=== PATIENT | female | born 1945 | race Caucasian/White ===

== ENCOUNTER 2017-04-29 14:05 | Observation (INO) | payer OTHER ==
[~2017-04-29] VITALS: Ht 152.4 cm; Wt 75.5 kg
[2017-04-29 14:10] VITALS: Ht 152.4 cm; Wt 75.5 kg
[2017-04-29] MEDS ORDERED: ASPIRIN 325 MG TAB PO STA (14:25)
[2017-04-29] MEDS ORDERED: NITROGLYCERIN 2% 1 GM OINT PKT TD STA (14:25)
[2017-04-29] MEDS ORDERED: ONDANSETRON 4 MG INJ IV STA (14:25)
[2017-04-29] MEDS ORDERED: morphine 4 MG/ML VIAL IV STA (14:25)
[2017-04-29] MEDS ORDERED: NITROGLYCERIN (SL) 0.4 MG TAB SL PRN (14:30)
[2017-04-29] MEDS ORDERED: NICARDipine HCL 30 MG CAPSULE PO ONE (14:30)
[2017-04-29 14:46] LABS: BASOPHIL # 0.1 10^3/ul (0.0-0.1); BASOPHILS % 0.5 % (0.0-2.0); EOSINOPHILS # 0.2 10^3/ul (0.0-0.5); EOSINOPHILS % 2.3 % (0.0-7.0); HEMATOCRIT 37.9 % (37.0-47.0); HEMOGLOBIN 12.5 g/dl (12.0-16.0); LYMPHOCYTES # 2.9 10^3/ul (0.8-2.9); LYMPHOCYTES % 27.3 % (15.0-51.0); MEAN CORPUSCULAR HEMOGLOBIN 28.2 pg (29.0-33.0); MEAN CORPUSCULAR VOLUME 85.6 fl (82.0-101.0); MEAN PLATELET VOLUME 11.2 fl (7.4-10.4); MONOCYTE # 0.8 10^3/ul (0.3-0.9); MONOCYTES % 7.3 % (0.0-11.0); NEUTROPHIL # 6.6 10^3/ul (1.6-7.5); NEUTROPHILS % 62.2 % (39.0-77.0); PLATELET COUNT 238 10^3/UL (140-415); RED BLOOD COUNT 4.43 10^6/ul (4.20-5.40); RED CELL DISTRIBUTION WIDTH 13.7 % (11.5-14.5); WHITE BLOOD COUNT 10.6 10^3/ul (4.8-10.8)
[2017-04-29 15:01] LABS: INR 1.03; PROTIME 13.5 Sec (12.2-14.2); PT RATIO 1.1
[2017-04-29 15:02] LABS: PARTIAL THROMBOPLASTIN TIME 29.9 Sec (25.0-35.0)
--- NOTE | 2017-04-29 15:04 | RADRPT ---
PROCEDURE: XR Chest. CLINICAL INDICATION: 71-year-old female with chest pain. TECHNIQUE: Single frontal view of the chest was obtained. COMPARISON: None FINDINGS: The soft tissues are generous with monitoring electrodes projecting across the chest. There are deg enerative osteophytes in the thoracic spine. The heart is mildly enlarged. A soft tissue density dugan spicious for an epicardial fat pad is noted adjacent to the right heart border. The cardiomediastina l silhouette and hilar structures are normal. The pulmonary vasculature is normal. There are vascul ar calcifications in the aortic arch. The lungs are clear. The costophrenic angles are normal. IMPRESSION: 1. Mild cardiomegaly with no evidence of active cardiopulmonary disease. 2. Soft tissue density suspicious for an epicardial fat pad adjacent to the right heart border. An eventration in the dome of the right diaphragm might present this fashion. This is likely benign. 3. Atherosclerotic vascular disease. RPTAT:AAJJ Physician Juvenal Date Time Electronically viewed and signed by Physician Juvenal on 04/29/2017 15:04 JOHNATHAN/
[2017-04-29 15:08] VITALS: TEMP 98.7
--- NOTE | 2017-04-29 15:09 | ERA ---
ER Documentation Chief Complaint Date/Time DATE: 04/29/17 TIME: 15:05 Chief Complaint Chest PAIN SINCE LAST NIGHT, HX OF STENT PLCMT, FEELS SAME HPI This is a 71-year-old diabetic with a history of cardiac stent placement a few years ago at an outside hospital is complaining of chest pain last night and again this morning at around 4 AM. She describes the sensation is moderate to severe that is a pressure-like sensation with radiation up into her neck. She has some shortness of breath and diaphoresis and slight nausea. No vomiting no syncope no palpitations. She says the pain is exactly like the pain she had before her stent was placed. The patient takes one baby aspirin a day but did not take any other medication for pain relief such as nitroglycerin. ROS All systems reviewed and are negative except as per history of present illness. Medications Home Meds Reported Medications Atorvastatin* (Atorvastatin*) 40 Mg Tablet, 40 MG PO QHS, #30 TAB 04/29/17 Clopidogrel Bisulfate (Clopidogrel) 75 Mg Tablet, 75 MG PO DAILY, #30 TAB 04/29/17 Aspirin* (Aspirin* EC) 81 Mg Tablet.dr, 81 MG PO DAILY, TAB 04/29/17 Clonidine Hcl* (Clonidine Hcl*) 0.2 Mg Tablet, 0.2 MG PO DAILY Y for ELEVATED BLOOD PRESSURE, TAB 04/29/17 Metformin* (Glucophage*) 500 Mg Tab, 500 MG PO BID WITH MEALS, #30 TAB 04/29/17 Meloxicam* (Mobic*) 15 Mg Tablet, 15 MG PO DAILY, #30 TAB 04/29/17 Atenolol* (Atenolol*) 50 Mg Tablet, 50 MG PO DAILY, #30 04/29/17 Losartan-Hydrochlorothiazide (Losartan-HCTZ) 100-12.5 Mg Tab, 1 TAB PO DAILY, # 30 04/29/17 Allergies Allergies: Coded Allergies: No Known Allergy (Unverified , 04/29/17) PMhx/Soc Hx Cardiac Disorders: Yes Hx Alcohol Use: No Hx Substance Use: No Hx Tobacco Use: No Smoking Status: Never smoker FmHx Family History: No coronary disease Physical Exam Vitals Vital Signs Date Time Temp Pulse Resp B/P Pulse Ox O2 Delivery O2 Flow Rate FiO2 04/29/17 15:51 60 22 130/62 97 Room Air 04/29/17 15:08 98.7 54 20 236/102 98 Nasal Cannula 2.0 04/29/17 15:01 Nasal Cannula 2 04/29/17 14:37 Nasal Cannula 2 04/29/17 14:10 98.6 61 24 236/102 98 Physical Exam Const: Well-developed, well-nourished Head: Atraumatic, normocephalic Eyes: Normal Conjunctiva, PERRLA, EOMI, normal sclera, no nystagmus ENT: Normal External Ears, Nose and Mouth, moist mucus membranes. Neck: Full range of motion. No meningismus, no lymphadenopathy. Resp: Clear to auscultation bilaterally, no wheezing, rhonchi, rales Cardio: Regular rate and rhythm, no murmurs, S1 S2 present Abd: Soft, non tender x 4, non distended. Normal bowel sounds, no guarding or rebound, no pulsitile abdominal masses or bruits Skin: No petechiae or rashes, no ecchymosis , no maculopapular rash Back: No midline or flank tenderness Ext: No cyanosis, or edema, FROM x 4, normal inspection, neurovascularly intact x 4 Neur: Awake and alert, STR 5/5 x 4, sensation intact x 4, no focal findings, cerebellum intact Psych: Normal Mood and Affect Result Diagram: 04/29/17 1430 04/29/17 1515 Results 24 hrs Laboratory Tests Test 04/29/17 14:30 04/29/17 15:15 White Blood Count 10.610^3/ul Red Blood Count 4.4310^6/ul Hemoglobin 12.5g/dl Hematocrit 37.9% Mean Corpuscular Volume 85.6fl Mean Corpuscular Hemoglobin 28.2pg Mean Corpuscular Hemoglobin Concent 33.0g/dl Red Cell Distribution Width 13.7% Platelet Count 42975^3/UL Mean Platelet Volume 11.2fl Neutrophils % 62.2% Lymphocytes % 27.3% Monocytes % 7.3% Eosinophils % 2.3% Basophils % 0.5% Nucleated Red Blood Cells % 0.0/100WBC Neutrophils # 6.610^3/ul Lymphocytes # 2.910^3/ul Monocytes # 0.810^3/ul Eosinophils # 0.210^3/ul Basophils # 0.110^3/ul Nucleated Red Blood Cells # 0.010^3/ul Prothrombin Time 13.5Sec Prothrombin Time Ratio 1.1 INR International Normalized Ratio 1.03 Activated Partial Thromboplast Time 29.9Sec Sodium Level 138mmol/L Potassium Level 4.0mmol/L Chloride Level 104mmol/L Carbon Dioxide Level 27mmol/L Anion Gap 11 Blood Urea Nitrogen 17mg/dl Creatinine 0.76mg/dl Glucose Level 97mg/dl Calcium Level 9.1mg/dl Troponin I < 0.012ng/ml B-Type Natriuretic Peptide 319PG/ML Current Medications Medications (Trade) Dose Ordered Sig/Fay Route PRN Reason Start Time Stop Time Status Last Admin Dose Admin Aspirin (Aspirin) 325 mg ONCE STAT PO 04/29/17 14:25 04/29/17 14:27 DC 04/29/17 14:41 Nitroglycerin (Nitroglycerin 2% Oint) 1 inch ONCE STAT TD 04/29/17 14:25 04/29/17 14:27 DC 04/29/17 15:01 Nitroglycerin (Nitroglycerin (Sl Tab) 0.4 Mg) 1 tab Q5M UP TO 3 DOSES PRN SL CHEST PAIN 04/29/17 14:30 Morphine Sulfate (morphine) 4 mg ONCE STAT IV 04/29/17 14:25 04/29/17 14:27 DC 04/29/17 14:41 Ondansetron HCl (Zofran Inj) 4 mg ONCE STAT IV 04/29/17 14:25 04/29/17 14:27 DC 04/29/17 14:42 Nicardipine HCl (Cardene) 30 mg ONCE ONCE PO 04/29/17 14:30 04/29/17 14:31 DC 04/29/17 15:00 Procedures/MDM EKG: Rate/Rhythm: Normal Sinus Rhythm,NL intervals QRS, ST, QT: NORMAL FL, QRS, QT] Impression: NORMAL EKG PROCEDURE: XR Chest. CLINICAL INDICATION: 71-year-old female with chest pain. TECHNIQUE: Single frontal view of the chest was obtained. COMPARISON: None FINDINGS: The soft tissues are generous with monitoring electrodes projecting across the chest. There are degenerative osteophytes in the thoracic spine. The heart is mildly enlarged. A soft tissue density suspicious for an epicardial fat pad is noted adjacent to the right heart border. The cardiomediastinal silhouette and hilar structures are normal. The pulmonary vasculature is normal. There are vascular calcifications in the aortic arch. The lungs are clear. The costophrenic angles are normal. IMPRESSION: 1. Mild cardiomegaly with no evidence of active cardiopulmonary disease. 2. Soft tissue density suspicious for an epicardial fat pad adjacent to the right heart border. An eventration in the dome of the right diaphragm might present this fashion. This is likely benign. 3. Atherosclerotic vascular disease. RPTAT:AAJJ Physician Juvenal Date Time Electronically viewed and signed by Jose R Lyon Physician on 04/29/2017 15:04 JM/ CC: MAUREEN PHILLIPS DO Patient's symptoms are concerning for cardiac cause will require inpatient workup and continuous monitoring. Further w/u for ischemia, arrhythmia, PE or dissection will be deferred to the inpatient team. Accepting Care Team: Current data and ongoing care discussed. Time: Time of admission Primary Provider: XOXOXO Consulting: XOXOXO Outstanding Data: none Critical Care Time: 35 minutes Treatments/Evaluations: Close monitoring and treatment of unstable vital signs, cardiorespiratory, and neurologic status, while maintaining tight balance of fluid, respiratory, and cardiac interventions. This time includes discussing the case with the patient and the patient's family. This time does not include all procedures stated elsewhere in this record. This time also includes reviewing old records, labs and radiological studies. This time includes examining and re-examining the patient. Additionally, this time also includes arranging care with admitting and consulting physicians. PROCEDURE: XR Chest. CLINICAL INDICATION: 71-year-old female with chest pain. TECHNIQUE: Single frontal view of the chest was obtained. COMPARISON: None FINDINGS: The soft tissues are generous with monitoring electrodes projecting across the chest. There are degenerative osteophytes in the thoracic spine. The heart is mildly enlarged. A soft tissue density suspicious for an epicardial fat pad is noted adjacent to the right heart border. The cardiomediastinal silhouette and hilar structures are normal. The pulmonary vasculature is normal. There are vascular calcifications in the aortic arch. The lungs are clear. The costophrenic angles are normal. IMPRESSION: 1. Mild cardiomegaly with no evidence of active cardiopulmonary disease. 2. Soft tissue density suspicious for an epicardial fat pad adjacent to the right heart border. An eventration in the dome of the right diaphragm might present this fashion. This is likely benign. 3. Atherosclerotic vascular disease. RPTAT:AAJJ Jose R Lyon Physician Date Time Electronically viewed and signed by Jose R Lyon, Physician on 04/29/2017 15:04 JM/ CC: MAUREEN PHILLIPS DO Departure Diagnosis: Primary Impression: Hypertensive emergency Additional Impression: Chest pain Qualified Code: R07.9 - Chest pain, unspecified type Condition: Fair MAUREEN PHILLIPS DO Apr 29, 2017 15:09
[2017-04-29] MEDS ORDERED: LOSA1TAB21 PO (15:22)
[2017-04-29] MEDS ORDERED: ATEN50TA PO (15:23)
[2017-04-29] MEDS ORDERED: METF500T4 PO (15:24)
[2017-04-29] MEDS ORDERED: MELO-210 PO (15:24)
[2017-04-29] MEDS ORDERED: CLON0.2T5 PO (15:25)
[2017-04-29] MEDS ORDERED: ASPI-664 PO (15:26)
[2017-04-29] MEDS ORDERED: CLOP75TA27 PO (15:32)
[2017-04-29] MEDS ORDERED: ATOR40TA68 PO (15:33)
[2017-04-29 15:41] LABS: ANION GAP 11 (8-16); BLOOD UREA NITROGEN 17 mg/dl (7-20); CALCIUM 9.1 mg/dl (8.4-10.2); CARBON DIOXIDE 27 mmol/L (21-31); CHLORIDE 104 mmol/L (97-110); CREATININE 0.76 mg/dl (0.44-1.00); GLUCOSE 97 mg/dl (70-220); SODIUM 138 mmol/L (135-144)
[2017-04-29 15:52] LABS: B-TYPE NATRIURETIC PEPTIDE 319 PG/ML (0-125)
[2017-04-29 15:53] LABS: TROPONIN-I < 0.012 ng/ml (0.00-0.12)
[2017-04-29] MEDS ORDERED: NACL 0.9% 3 ML SYG IV SCH (18:00)
[2017-04-29] MEDS ORDERED: ONDANSETRON 4 MG INJ IV PRN (18:00)
[2017-04-29] MEDS ORDERED: morphine 2 MG INJ IV PRN (18:00)
[2017-04-29] MEDS ORDERED: ACETAMINOPHEN 325 MG TAB PO PRN ×2 (18:00)
[2017-04-29 18:36] LABS: CHOL/HDL RATIO 2.6 RATIO
[2017-04-29] MEDS: ATENOLOL 50 MG TAB PO SCH (19:00)
--- NOTE | 2017-04-29 19:12 | HP ---
Date/Time of Note Date/Time of Note DATE: 04/29/17 TIME: 19:06 Assessment/Plan VTE Prophylaxis VTE Prophylaxis Intervention: SCD's Lines/Catheters IV Catheter Type (from Nrsg): Saline Lock Assessment/Plan Assessment/Plan 71 yo F with known hx CAD sp PCI admitted for chest pain in setting of elevated BP. Concern for HTN urgency v emergency and ACS PLAN tele, serial trops, TTE consider cards cs v calling the oncall for [facility] in the AM [phone]) cont home BP control for DM hx, do accuchecks. a1c 6.6 cardiac diet DVT prophx HPI/ROS Admit Date/Time Admit Date/Time Hx of Present Illness CC chest pain x 1 day HPI 71 yo F with pmhx CAD sp PCI 12 years ago here with 1 day of chest pain ( started this AM). No SOB or leg swelling. Pt recently seen by supervisor fine grading ( [facility] in [place]). Was told based on the results of a TTE that she might need a stress test or cath as there was concern that her stent was " weak. " BP quite high on presentation, pt given nitropaste and cardene PMHx as per HPI Soc Hx: lives in the community PMH/Family/Social Social History Smoking Status: Never smoker Exam/Review of Systems Vital Signs Vitals Vital Signs Date Time Temp Pulse Resp B/P Pulse Ox O2 Delivery O2 Flow Rate FiO2 04/29/17 18:11 52 17 137/68 94 Room Air 04/29/17 15:08 98.7 2.0 Exam Exam EOMI MMM nad no mrg lungs clear abd soft no rashes labs reviewed Labs Result Diagram: 04/29/17 1430 04/29/17 1515 Medications Medications Current Medications Aspirin (Halfprin) 81 mg DAILY PO ; Start 04/30/17 at 09:00 Atenolol (Tenormin) 50 mg DAILY PO ; Start 04/29/17 at 18:00 Atorvastatin Calcium (Lipitor) 40 mg QHS PO ; Start 04/29/17 at 21:00 Clopidogrel Bisulfate (plaVIX) 75 mg DAILY PO ; Start 04/30/17 at 09:00 Losartan Potassium (Cozaar) 100 mg DAILY PO ; Start 04/30/17 at 09:00 Clonidine (Catapres) 0.2 mg Q6H PRN PO SBP>180; Start 04/29/17 at 18:00 Acetaminophen (Tylenol Tab) 650 mg Q6H PRN PO PAIN LEVEL 1-3 OR FEVER; Start 04/29/17 at 18:00 Acetaminophen/ Hydrocodone Bitart ([place] (5/325)) 1 tab Q6H PRN PO PAIN LEVEL 4 -6; Start 04/29/17 at 18:00 Morphine Sulfate (morphine) 2 mg Q4H PRN IV PAIN LEVEL 7-10; Start 04/29/17 at 18:00 Enoxaparin Sodium (Lovenox) 40 mg DAILY SC ; Start 04/30/17 at 09:00 Hydrochlorothiazide (Hydrochlorothiazide) 12.5 mg DAILY PO ; Start 04/30/17 at 09:00 KIKE EATON MD Apr 29, 2017 19:12
[2017-04-29 20:00] VITALS: BP 149/68; RESP 20
[2017-04-29 20:19] VITALS: PULSE 56
[2017-04-29] MEDS: ATORVASTATIN 40 MG TAB PO SCH (21:04)
[2017-04-30] VITALS (14 sets, daily range): BP systolic 118–168; BP diastolic 56–87; PULSE 40–60; RESP 18–20
[2017-04-30 04:48] LABS: CALCIUM 9.5 mg/dl (8.4-10.2); CREATININE 0.79 mg/dl (0.44-1.00); MAGNESIUM 1.8 mg/dl (1.7-2.5); POTASSIUM 4.4 mmol/L (3.5-5.1)
[2017-04-30] MEDS ORDERED: DEXTROSE 50% 50 ML SYRINGE IV PRN ×2 (08:00)
[2017-04-30] MEDS ORDERED: GLUCOSE GEL 15 GRAM TUBE PO PRN ×2 (08:00)
[2017-04-30] MEDS: INSULIN ASPART [NOVOLOG] 3 ML PEN SC SCH ×4 (08:00→20:39)
[2017-04-30] MEDS ORDERED: GLUCOSE GEL 15 GRAM TUBE BUCCAL PRN (08:00)
[2017-04-30] MEDS ORDERED: GLUCAGON 1 MG INJ IM PRN (08:00)
[2017-04-30] MEDS: ATENOLOL 50 MG TAB PO SCH (09:00)
[2017-04-30] MEDS: HYDROCHLOROTHIAZIDE 12.5 MG CAP PO SCH (09:09)
[2017-04-30] MEDS: CLOPIDOGREL 75 MG TAB PO SCH (09:09)
[2017-04-30] MEDS: HYDROCODONE/APAP (5/325) TAB PO PRN ×2 (09:10→20:37)
[2017-04-30] MEDS: ASPIRIN (EC) 81 MG TAB PO SCH (09:10)
[2017-04-30] MEDS: LOSARTAN 50 MG TAB PO SCH (09:10)
[2017-04-30] MEDS: ENOXAPARIN 40 MG/0.4 ML SYG SC SCH (09:13)
--- NOTE | 2017-04-30 13:48 | CONS ---
Date/Time of Note Date/Time of Note DATE: 04/30/17 TIME: 13:35 Assessment/Plan Assessment/Plan Chief Complaint/Hosp Course Chest pain/angina: May just be secondary to her very high BP (230 on presentation) but has h/o CAD and may have progression of disease. Trops negative and EKG unremarkable. She certainly has exertional angina but may be from her uncontrolled BP even with normal coronaries. For now will obtain and echo and MPI. If high risk features, plan for cardiac cath later this week. Acute ?diastolic vs systolic heart failure: EF unknown. Mild CHF by exam. Possibly from uncontrolled BP and diastolic dysfunction vs systolic dysfunction HTN urgency: SBP 230s on admission, now better controlled CAD s/p PCI 12 yrs ago DM: controlled. A1C 6.6 -ASA, lipitor -atenolol ok for now, prefer metoprolol or if cardiomyopathy, can start coreg -cozaar 100mg, HCTZ -lasix 20mg IV x 1 and reassess -echo -Lexiscan MPI tomorrow am, NPO after midnight Problems: Consultation Date/Type/Reason Admit Date/Time Date of Consultation: Apr 30, 2017 Type of Consultation: Cardiology Reason for Consultation Chest pain Referring Provider: KIKE EATON MD Hx of Present Illness 71 yo F with a h/o CAD s/p PCI 12 yrs ago, DM (controlled), HTN, who presented with chest pain. On presentation, the pt's SBP was 230 and at home it was apparently 220. The pt's son tells me that the pt has been having 1 month of exertional chest pain and dyspnea. She was evaluated at [facility] by Dr. Franco and the plan was for Stress MPI but they have been waiting for authorization. The pt also has been having mild SOB and leg edema. Currently no symptoms. per HPI Social History Smoking Status: Never smoker Exam/Review of Systems Vital Signs Vitals Vital Signs Date Time Temp Pulse Resp B/P Pulse Ox O2 Delivery O2 Flow Rate FiO2 04/30/17 12:12 98.3 79 19 131/74 98 04/29/17 19:29 Room Air 04/29/17 15:08 2.0 Intake and Output 04/29/17 04/29/17 04/30/17 15:00 23:00 07:00 Intake Total 250 ml Balance 250 ml Exam Constitutional: alert, oriented Psych: no complaints Head: atraumatic, normocephalic Eyes: nl conjunctiva Neck: jvd (8cm) Respiratory: crackles/rales, diminished breath sounds, No clear to auscultation Cardiovascular: regular rate and rhythm, No edema, No systolic murmur Gastrointestinal: non-tender, soft, No distended Musculoskeletal: nl extremities to inspection Neurological: nl mental status, nl speech Skin: No rash or lesions Results EKG: sinus, no ST changes Result Diagram: 04/29/17 1430 04/30/17 0352 Results 24 hrs Laboratory Tests Test 04/29/17 14:30 04/29/17 15:15 04/29/17 22:21 04/30/17 03:52 White Blood Count 10.6 Red Blood Count 4.43 Hemoglobin 12.5 Hematocrit 37.9 Mean Corpuscular Volume 85.6 Mean Corpuscular Hemoglobin 28.2 L Mean Corpuscular Hemoglobin Concent 33.0 Red Cell Distribution Width 13.7 Platelet Count 238 Mean Platelet Volume 11.2 H Neutrophils % 62.2 Lymphocytes % 27.3 Monocytes % 7.3 Eosinophils % 2.3 Basophils % 0.5 Nucleated Red Blood Cells % 0.0 Neutrophils # 6.6 Lymphocytes # 2.9 Monocytes # 0.8 Eosinophils # 0.2 Basophils # 0.1 Nucleated Red Blood Cells # 0.0 Prothrombin Time 13.5 Prothrombin Time Ratio 1.1 INR International Normalized Ratio 1.03 Activated Partial Thromboplast Time 29.9 Sodium Level 138 139 Potassium Level 4.0 4.4 Chloride Level 104 106 Carbon Dioxide Level 27 28 Anion Gap 11 9 Blood Urea Nitrogen 17 21 H Creatinine 0.76 0.79 Glucose Level 97 96 Hemoglobin A1c 6.6 H Calcium Level 9.1 9.5 Troponin I < 0.012 < 0.012 < 0.012 B-Type Natriuretic Peptide 319 H Triglycerides Level 114 Cholesterol Level 94 L LDL Cholesterol, Calculated 35 HDL Cholesterol 36 Cholesterol/HDL Ratio 2.6 Magnesium Level 1.8 Test 04/30/17 08:17 04/30/17 11:54 Bedside Glucose 107 120 Medications Medications Current Medications Aspirin (Halfprin) 81 mg DAILY PO Last administered on 04/30/17 09:10; Admin Dose 81 MG; Start 04/30/17 at 09:00 Atenolol (Tenormin) 50 mg DAILY PO Last administered on 04/29/17 19:00; Admin Dose 50 MG; Start 04/29/17 at 18:00 Atorvastatin Calcium (Lipitor) 40 mg QHS PO Last administered on 04/29/17 21: 04; Admin Dose 40 MG; Start 04/29/17 at 21:00 Clopidogrel Bisulfate (plaVIX) 75 mg DAILY PO Last administered on 04/30/17 09 :09; Admin Dose 75 MG; Start 04/30/17 at 09:00 Losartan Potassium (Cozaar) 100 mg DAILY PO Last administered on 04/30/17 09: 10; Admin Dose 100 MG; Start 04/30/17 at 09:00 Clonidine (Catapres) 0.2 mg Q6H PRN PO SBP>180; Start 04/29/17 at 18:00 Acetaminophen (Tylenol Tab) 650 mg Q6H PRN PO PAIN LEVEL 1-3 OR FEVER; Start 04/29/17 at 18:00 Acetaminophen/ Hydrocodone Bitart ([place] (5/325)) 1 tab Q6H PRN PO PAIN LEVEL 4 -6 Last administered on 04/30/17 09:10; Admin Dose 1 TAB; Start 04/29/17 at 18: 00 Morphine Sulfate (morphine) 2 mg Q4H PRN IV PAIN LEVEL 7-10; Start 04/29/17 at 18:00 Enoxaparin Sodium (Lovenox) 40 mg DAILY SC Last administered on 04/30/17 09:13 ; Admin Dose 40 MG; Start 04/30/17 at 09:00 Hydrochlorothiazide (Hydrochlorothiazide) 12.5 mg DAILY PO Last administered on 04/30/17 09:09; Admin Dose 12.5 MG; Start 04/30/17 at 09:00 Diagnostic Test (Pha) (Accu-Chek) 1 ea 02 XX ; Start 05/01/17 at 02:00 Diagnostic Test (Pha) (Accu-Chek) 1 ea 02 XX ; Start 05/01/17 at 02:00 Miscellaneous Information 1 ea NOTE XX ; Start 04/30/17 at 08:00 Glucose (Glutose) 15 gm Q15M PRN PO DECREASED GLUCOSE; Start 04/30/17 at 08:00 Glucose (Glutose) 22.5 gm Q15M PRN PO DECREASED GLUCOSE; Start 04/30/17 at 08: 00 Dextrose (D50w Syringe) 25 ml Q15M PRN IV DECREASED GLUCOSE; Start 04/30/17 at 08:00 Dextrose (D50w Syringe) 50 ml Q15M PRN IV DECREASED GLUCOSE; Start 04/30/17 at 08:00 Glucagon (Glucagen) 1 mg Q15M PRN IM DECREASED GLUCOSE; Start 04/30/17 at 08:00 Glucose (Glutose) 15 gm Q15M PRN BUCCAL DECREASED GLUCOSE; Start 04/30/17 at 08 :00 GUCCI CISSE Apr 30, 2017 13:48
[2017-04-30] MEDS ORDERED: FUROSEMIDE 20 MG INJ IV ONE (14:00)
--- NOTE | 2017-04-30 14:15 | PN ---
Date/Time of Note Date/Time of Note DATE: 04/30/17 TIME: 14:12 Assessment/Plan VTE Prophylaxis VTE Prophylaxis Intervention: SCD's Lines/Catheters IV Catheter Type (from Nrsg): Saline Lock Assessment/Plan Assessment/Plan 71 yo F with known hx CAD sp PCI admitted for chest pain in setting of elevated BP. Concern for HTN urgency v emergency and ACS PLAN stress test in AM cont DAPT, statin cont BP control (agree with cards would make more sense to have pt on cardioselective bb) cont current meds for DM hx, accuchecks. a1c 6.6 Subjective 24 Hr Interval Summary Free Text/Dictation chest pain resolved, BP better Exam/Review of Systems Vital Signs Vitals Vital Signs Date Time Temp Pulse Resp B/P Pulse Ox O2 Delivery O2 Flow Rate FiO2 04/30/17 12:12 98.3 79 19 131/74 98 04/29/17 19:29 Room Air 04/29/17 15:08 2.0 Intake and Output 04/29/17 04/29/17 04/30/17 15:00 23:00 07:00 Intake Total 250 ml Balance 250 ml Exam nad laying in bed no mrg lungs clear abd soft no rashes prelim TTE read by taxation economist with both systolic and diastolic dysfunction Results Result Diagram: 04/29/17 1430 04/30/17 0352 Results 24 hrs Laboratory Tests Test 04/29/17 14:30 04/29/17 15:15 04/29/17 22:21 04/30/17 03:52 White Blood Count 10.6 Red Blood Count 4.43 Hemoglobin 12.5 Hematocrit 37.9 Mean Corpuscular Volume 85.6 Mean Corpuscular Hemoglobin 28.2 L Mean Corpuscular Hemoglobin Concent 33.0 Red Cell Distribution Width 13.7 Platelet Count 238 Mean Platelet Volume 11.2 H Neutrophils % 62.2 Lymphocytes % 27.3 Monocytes % 7.3 Eosinophils % 2.3 Basophils % 0.5 Nucleated Red Blood Cells % 0.0 Neutrophils # 6.6 Lymphocytes # 2.9 Monocytes # 0.8 Eosinophils # 0.2 Basophils # 0.1 Nucleated Red Blood Cells # 0.0 Prothrombin Time 13.5 Prothrombin Time Ratio 1.1 INR International Normalized Ratio 1.03 Activated Partial Thromboplast Time 29.9 Sodium Level 138 139 Potassium Level 4.0 4.4 Chloride Level 104 106 Carbon Dioxide Level 27 28 Anion Gap 11 9 Blood Urea Nitrogen 17 21 H Creatinine 0.76 0.79 Glucose Level 97 96 Hemoglobin A1c 6.6 H Calcium Level 9.1 9.5 Troponin I < 0.012 < 0.012 < 0.012 B-Type Natriuretic Peptide 319 H Triglycerides Level 114 Cholesterol Level 94 L LDL Cholesterol, Calculated 35 HDL Cholesterol 36 Cholesterol/HDL Ratio 2.6 Magnesium Level 1.8 Test 04/30/17 08:17 04/30/17 11:54 Bedside Glucose 107 120 Medications Medications Current Medications Aspirin (Halfprin) 81 mg DAILY PO Last administered on 04/30/17 09:10; Admin Dose 81 MG; Start 04/30/17 at 09:00 Atenolol (Tenormin) 50 mg DAILY PO Last administered on 04/29/17 19:00; Admin Dose 50 MG; Start 04/29/17 at 18:00 Atorvastatin Calcium (Lipitor) 40 mg QHS PO Last administered on 04/29/17 21: 04; Admin Dose 40 MG; Start 04/29/17 at 21:00 Clopidogrel Bisulfate (plaVIX) 75 mg DAILY PO Last administered on 04/30/17 09 :09; Admin Dose 75 MG; Start 04/30/17 at 09:00 Losartan Potassium (Cozaar) 100 mg DAILY PO Last administered on 04/30/17 09: 10; Admin Dose 100 MG; Start 04/30/17 at 09:00 Clonidine (Catapres) 0.2 mg Q6H PRN PO SBP>180; Start 04/29/17 at 18:00 Acetaminophen (Tylenol Tab) 650 mg Q6H PRN PO PAIN LEVEL 1-3 OR FEVER; Start 04/29/17 at 18:00 Acetaminophen/ Hydrocodone Bitart ([place] (5/325)) 1 tab Q6H PRN PO PAIN LEVEL 4 -6 Last administered on 04/30/17 09:10; Admin Dose 1 TAB; Start 04/29/17 at 18: 00 Morphine Sulfate (morphine) 2 mg Q4H PRN IV PAIN LEVEL 7-10; Start 04/29/17 at 18:00 Enoxaparin Sodium (Lovenox) 40 mg DAILY SC Last administered on 04/30/17 09:13 ; Admin Dose 40 MG; Start 04/30/17 at 09:00 Hydrochlorothiazide (Hydrochlorothiazide) 12.5 mg DAILY PO Last administered on 04/30/17t 09:09; Admin Dose 12.5 MG; Start 04/30/17 at 09:00 Diagnostic Test (Pha) (Accu-Chek) 1 ea 02 XX ; Start 05/01/17 at 02:00 Diagnostic Test (Pha) (Accu-Chek) 1 ea 02 XX ; Start 05/01/17 at 02:00 Miscellaneous Information 1 ea NOTE XX ; Start 04/30/17 at 08:00 Glucose (Glutose) 15 gm Q15M PRN PO DECREASED GLUCOSE; Start 04/30/17 at 08:00 Glucose (Glutose) 22.5 gm Q15M PRN PO DECREASED GLUCOSE; Start 04/30/17 at 08: 00 Dextrose (D50w Syringe) 25 ml Q15M PRN IV DECREASED GLUCOSE; Start 04/30/17 at 08:00 Dextrose (D50w Syringe) 50 ml Q15M PRN IV DECREASED GLUCOSE; Start 04/30/17 at 08:00 Glucagon (Glucagen) 1 mg Q15M PRN IM DECREASED GLUCOSE; Start 04/30/17 at 08:00 Glucose (Glutose) 15 gm Q15M PRN BUCCAL DECREASED GLUCOSE; Start 04/30/17 at 08 :00 Isosorbide Mononitrate (Imdur) 30 mg DAILY PO ; Start 04/30/17 at 14:00 KIKE EATON MD Apr 30, 2017 14:15
[2017-04-30] MEDS: ISOSORBIDE MONONITRATE(SR)30 MG TAB PO SCH (15:09)
[2017-04-30] MEDS: ATORVASTATIN 40 MG TAB PO SCH (20:37)
[2017-05-01] VITALS (11 sets, daily range): BP systolic 123–178; BP diastolic 58–75; PULSE 50–58; RESP 16–19
[2017-05-01] MEDS ORDERED: ACCU-CHEK XX SCH ×2 (02:00)
[2017-05-01] MEDS: INSULIN ASPART [NOVOLOG] 3 ML PEN SC SCH ×3 (08:00→18:05)
[2017-05-01] MEDS: LOSARTAN 50 MG TAB PO SCH (08:21)
[2017-05-01] MEDS: ASPIRIN (EC) 81 MG TAB PO SCH (08:21)
[2017-05-01] MEDS: ATENOLOL 50 MG TAB PO SCH (08:22)
[2017-05-01] MEDS: ISOSORBIDE MONONITRATE(SR)30 MG TAB PO SCH (08:22)
[2017-05-01] MEDS: CLOPIDOGREL 75 MG TAB PO SCH (08:22)
[2017-05-01] MEDS: HYDROCHLOROTHIAZIDE 12.5 MG CAP PO SCH (08:23)
[2017-05-01] MEDS: ENOXAPARIN 40 MG/0.4 ML SYG SC SCH (08:30)
[2017-05-01] MEDS ORDERED: REGADENOSON 0.4 MG/5 ML SYG ONE (09:31)
[2017-05-01] MEDS ORDERED: hydrALAzine 20 MG INJ ONE (09:45)
[2017-05-01] MEDS ORDERED: hydrALAzine 20 MG INJ IV PRN (10:00)
--- NOTE | 2017-05-01 10:01 | RADRPT ---
Echocardiogram Report Patient Name: NEERU HERRING Gender: Female Date: 1945 Study Date: 30-Apr-2017 Process Development Chemist: [facility] Location: I Ref. Physician: KIKE EATON Quality: Adequate Procedures: Transthoracic echocardiogram with complete 2D, M-Mode, and doppler examination. Indications: Chest Pain. 2D/M Mode Doppler Measurement Value Normal Ranges Measurement Value Normal Ranges LVIDd 2D 4.4 3.5 - 5.6 cm AV Peak Deangelo 1.7 m/sec LVIDs 2D 2.8 2.1 - 4.1 cm AV Peak PG 12.0 mmHg FS 2D 36.0 % AI Peak PG 53.0 mmHg LVPWd 2D 1.5 0.6 - 1.1 cm AI Peak Deangelo 3.6 m/sec IVSd 2D 1.5 0.6 - 1.1 cm AI PHT 891.0 msec IVS/LVPW 2D 1.0 LVOT Peak Deangelo 1.0 m/sec AoR Diam 2D 2.1 2.0 - 3.7 cm LVOT Peak PG 4.0 mmHg LA/Ao 2D 2 0 - 1 MV E Peak Deangelo 0.9 m/sec EDV 2D 84.6 cm3 MV A Peak Deangelo 0.7 m/sec ESV 2D 22.2 cm3 MV E/A 1.3 LA Dimen 2D 3.3 2.3 - 4.0 cm MV Decel Time 264 msec MV E/A 1.3 Findings Left Ventricle: Normal left ventricular systolic function. Normal left ventricular cavity size. Moderate concentric left ventricular hypertrophy. Ejection fraction is visually estimated at 65 %. Tissue Doppler/Mitral Doppler indices are consistent with impaired relaxation (Stage I diastolic dysfunction). Right Ventricle: Normal right ventricular size. Normal right ventricular systolic function. Left Atrium: There is moderate enlargement of left atrium. Right Atrium: There is moderate enlargement of right atrium. Mitral Valve: Normal appearance of the mitral valve. Mild mitral valve regurgitation. Aortic Valve: Aortic sclerosis without stenosis. Mild aortic valve regurgitation. Tricuspid Valve: Normal appearance of the tricuspid valve. Unable to obtain RVSP due to minimal presence of tricuspid regurgitation. There is trace tricuspid regurgitation. Pulmonic Valve: Pulmonic valve not well visualized. There is trace pulmonic regurgitation. Pericardium: Normal pericardium with no significant pericardial effusion. There is an anterior echo free space consistent with epicardial fat pad. Aorta: Normal aortic root. IVC: Normal size and normal respiratory collapse consistent with normal right atrial pressure. Conclusions 1.Normal left ventricular systolic function. Normal left ventricular cavity size. Moderate concentric left ventricular hypertrophy. Ejection fraction is visually estimated at 65 %. Tissue Doppler/Mitral Doppler indices are consistent with impaired relaxation (Stage I diastolic dysfunction). 2.Aortic sclerosis without stenosis. Mild aortic valve regurgitation. 3.Unable to obtain RVSP due to minimal presence of tricuspid regurgitation. Normal size and normal respiratory collapse consistent with normal right atrial pressure. Electronically Signed By: Pillo Barry 01-May-2017 10:00:52 -8300 Patient Name: NEERU HERRING Study Date: 30-Apr-2017 [id number]
--- NOTE | 2017-05-01 10:19 | CONS ---
Date/Time of Note Date/Time of Note DATE: 05/01/17 TIME: 10:13 Assessment/Plan Assessment/Plan Chief Complaint/Hosp Course Chest pain/angina: May just be secondary to her very high BP (230 on presentation) but has h/o CAD and may have progression of disease. Trops negative and EKG unremarkable. Echo with preserved EF. Await Lexiscan Acute diastolic heart failure: EF preserved. Mod LVH, diastolic dysfunction. Now euvolemic. HTN urgency: SBP 230s on admission, now better controlled CAD s/p PCI 12 yrs ago DM: controlled. A1C 6.6 -ASA, lipitor -atenolol ok for now -cozaar 100mg, HCTZ -f/u Lexiscan. If negative and BP controlled, possible d/c Problems: Consultation Date/Type/Reason Admit Date/Time Apr 29, 2017 at 17:42 Initial Consult Date 04/30/17 Type of Consultation: Cardiology Referring Provider: KIKE EATON MD 24 HR Interval Summary Free Text/Dictation No o/n events. BP better cotrolled except this am at Lexiscan test. No further chest pain. Exam/Review of Systems Vital Signs Vitals Vital Signs Date Time Temp Pulse Resp B/P Pulse Ox O2 Delivery O2 Flow Rate FiO2 05/01/17 08:07 55 05/01/17 07:51 97.8 18 155/75 96 04/29/17 19:29 Room Air 04/29/17 15:08 2.0 Intake and Output 04/30/17 04/30/17 05/01/17 15:00 23:00 07:00 Intake Total 500 ml 200 ml Balance 500 ml 200 ml Exam Constitutional: alert, oriented Psych: nl mood/affect, no complaints Head: atraumatic, normocephalic Neck: No jvd Respiratory: clear to auscultation, No crackles/rales Cardiovascular: regular rate and rhythm, No edema, No systolic murmur Gastrointestinal: non-tender, soft Neurological: nl mental status, nl speech Results Result Diagram: 04/29/17 1430 04/30/17 0352 Results 24 hrs Laboratory Tests Test 04/30/17 11:54 04/30/17 17:07 04/30/17 20:36 05/01/17 08:20 Bedside Glucose 120 102 119 112 Medications Medications Current Medications Aspirin (Halfprin) 81 mg DAILY PO Last administered on 05/01/17 08:21; Admin Dose 81 MG; Start 04/30/17 at 09:00 Atenolol (Tenormin) 50 mg DAILY PO Last administered on 05/01/17 08:22; Admin Dose 50 MG; Start 04/29/17 at 18:00 Atorvastatin Calcium (Lipitor) 40 mg QHS PO Last administered on 04/30/17 20: 37; Admin Dose 40 MG; Start 04/29/17 at 21:00 Clopidogrel Bisulfate (plaVIX) 75 mg DAILY PO Last administered on 05/01/17 08 :22; Admin Dose 75 MG; Start 04/30/17 at 09:00 Losartan Potassium (Cozaar) 100 mg DAILY PO Last administered on 05/01/17 08: 21; Admin Dose 100 MG; Start 04/30/17 at 09:00 Clonidine (Catapres) 0.2 mg Q6H PRN PO SBP>180; Start 04/29/17 at 18:00 Acetaminophen (Tylenol Tab) 650 mg Q6H PRN PO PAIN LEVEL 1-3 OR FEVER; Start 04/29/17 at 18:00 Acetaminophen/ Hydrocodone Bitart ([place] (5/325)) 1 tab Q6H PRN PO PAIN LEVEL 4 -6 Last administered on 04/30/17 20:37; Admin Dose 1 TAB; Start 04/29/17 at 18: 00 Morphine Sulfate (morphine) 2 mg Q4H PRN IV PAIN LEVEL 7-10; Start 04/29/17 at 18:00 Enoxaparin Sodium (Lovenox) 40 mg DAILY SC Last administered on 05/01/17 08:30 ; Admin Dose 40 MG; Start 04/30/17 at 09:00 Hydrochlorothiazide (Hydrochlorothiazide) 12.5 mg DAILY PO Last administered on 05/01/17 08:23; Admin Dose 12.5 MG; Start 04/30/17 at 09:00 Diagnostic Test (Pha) (Accu-Chek) 1 ea 02 XX ; Start 05/01/17 at 02:00 Diagnostic Test (Pha) (Accu-Chek) 1 ea 02 XX ; Start 05/01/17 at 02:00 Miscellaneous Information 1 ea NOTE XX ; Start 04/30/17 at 08:00 Glucose (Glutose) 15 gm Q15M PRN PO DECREASED GLUCOSE; Start 04/30/17 at 08:00 Glucose (Glutose) 22.5 gm Q15M PRN PO DECREASED GLUCOSE; Start 04/30/17 at 08: 00 Dextrose (D50w Syringe) 25 ml Q15M PRN IV DECREASED GLUCOSE; Start 04/30/17 at 08:00 Dextrose (D50w Syringe) 50 ml Q15M PRN IV DECREASED GLUCOSE; Start 04/30/17 at 08:00 Glucagon (Glucagen) 1 mg Q15M PRN IM DECREASED GLUCOSE; Start 04/30/17 at 08:00 Glucose (Glutose) 15 gm Q15M PRN BUCCAL DECREASED GLUCOSE; Start 04/30/17 at 08 :00 Isosorbide Mononitrate (Imdur) 30 mg DAILY PO Last administered on 05/01/17 08 :22; Admin Dose 30 MG; Start 04/30/17 at 14:00 Hydralazine HCl (Apresoline) 10 mg Q4H PRN IV SBP >160 Last administered on 10:01; Admin Dose 10 MG; Start 05/01/17 at 10:00 GUCCI CISSE May 01, 2017 10:19
--- NOTE | 2017-05-01 11:01 | RADRPT ---
PROCEDURE: Lexiscan myocardial perfusion study CLINICAL INDICATION: 71 -year-old patient complaining of chest pain. TECHNIQUE: Lexiscan 0.4 mg intravenously separate acquisition gated myocardial perfusion SPECT usi ng Tc 99m Myoview 32.1 mCi intravenously at stress and Tc-99m Myoview, 10.4 mCi intravenously at res t was performed using the rest/stress sequence. Poststress Myoview SPECT images were obtained in th e supine position. COMPARISON: No prior studies. FINDINGS: Perfusion images reveal no evidence of perfusion defects. Lexiscan post stress gated SPECT images demonstrate no wall motion abnormalities. IMPRESSION: 1. No evidence of perfusion defects. 2. No wall motion abnormalities. 3. The left ventricle ejection fraction at stress is greater than 70%. RPTAT: HH .Tatiana Jc MD, MD Date Time Electronically viewed and signed by .Tatiana cJ MD, MD on 05/01/2017 11:01 .L/
--- NOTE | 2017-05-01 12:55 | PDOCDIS ---
Discharge Instructions CONDITION Patient Condition: Stable HOME CARE INSTRUCTIONS: Diet Instructions: Low Fat /Cholesterol ACTIVITY: Activity Restrictions: Slowly Increase Activity FOLLOW UP/APPOINTMENTS Follow-up Plan Please take your medications as prescribed. Please follow-up with your regular doctor in the clinic in the next 1 week. ALLYSSA LOPEZ May 01, 2017 12:55
--- NOTE | 2017-05-01 13:25 | DS ---
DATE OF ADMISSION: 04/29/2017 DATE OF DISCHARGE: 05/01/2017 HISTORY OF PRESENT ILLNESS: This is a 71-year-old female originally admitted on 04/29/2017, being discharged home pending final results of the stress test on 05/01/2017. The patient came in with chest pain for one day prior to admission. HOSPITAL COURSE: She was admitted to telemetry floor. She ruled out for acute coronary syndrome. She had an echocardiogram performed that showed ejection fraction of 65 percent. There was some stage 1 diastolic dysfunction, normal left ventricular systolic function, normal left ventricular cavity size, moderate concentric left ventricular hypertrophy was present, aortic sclerosis but without stenosis and mild aortic valve regurgitation. Over the course of the hospitalization, patient's symptoms improved. Also seen by cardiology team. Hemoglobin A1c was found to be 6.6. There were some slight adjustments made to the blood pressure medications. Patient underwent a nuclear stress test. The nuclear portion came back negative. We are still waiting for the stress portion of that test. If it is negative, the patient will likely be discharged home later today as the vital signs had been stable. There is some mild bradycardia but the patient is asymptomatic. Labs have been stable. Patient is tolerating diet. The patient will need to follow up with her regular doctor in clinic in the next one to two weeks. FINAL DIAGNOSES: 1. Chest pain. Ruled out for acute coronary syndrome. 2. Type 2 diabetes. 3. History of coronary artery disease, status post stent placement in the past. 4. Hypertensive urgency, now resolved. 5. Time taken to discharge the patient: 45 minutes. Dictated By: Quoc Kaufman MD /chen/cadence /Document#: [id number] REBECCA
== END 2017-05-01 19:50 | disposition home or self-care (01) ==
LOC: E/R 14:05 → MS4 17:42
PROVIDERS: ADMIT Internal Medicine; ATTEND Internal Medicine
DX: R07.9 Chest pain, unspecified (principal); I16.1 Hypertensive emergency; I25.10 Atherosclerotic heart disease of native coronary artery without angina pectoris; I11.0 Hypertensive heart disease with heart failure; I50.31 Acute diastolic (congestive) heart failure; Z95.5 Presence of coronary angioplasty implant and graft
CPT/HCPCS: 36415; 71010; 78452; 80048; 80061; 82962; 83036; 83735; 83880; 84484; 85025; 85610; 85730; 93005; 93017; 93306; 96374; 96375; A9500; A9505; J0360; J1650; J1815; J1940; J2270; J2405; J2785; Z7500; Z7502; Z7610; G0378

== ENCOUNTER 2018-12-16 02:53 | Emergency (ER) | payer OTHER ==
[~2018-12-16] VITALS: Ht 152.4 cm; Wt 68.9 kg
[~2018-12-16 02:53] MED LIST: ASPI-817 PO; ATEN50TA PO; ATOR40TA68 PO; CLON0.2T5 PO; CLOP75TA27 PO; LOSA1TAB28 PO; MELO15TA30 PO; METF-849 PO
[2018-12-16 02:57] VITALS: Ht 152.4 cm; Wt 68.9 kg
--- NOTE | 2018-12-16 03:14 | ERD ---
ER Documentation Chief Complaint Chief Complaint pt having uncontrolled HTN, pt out of 2 BP medications HPI This is a 73-year-old female with a past medical history of hypertension, diabetes, coronary artery disease status post stenting on Plavix who is presenting for medication noncompliance due to running out of his medications. The patient reports running out of her losartan HCTZ combo pill. She has been taking her atenolol. The patient checked her blood pressure at home and found to be out of control, so she came to the emergency department for further assessment. The patient does not endorse any symptoms at this time. She does not have a headache or vision changes. She does not have any chest pain or trouble breathing. She has not had any episodes of diaphoresis. She has not had any nausea or vomiting. She has not had any lightheadedness or dizziness. She has not had any focal deficits. She has not had any weakness or numbness or tingling to the face or extremities. The patient denies feeling sick recently. The patient denies fever or chills. The patient does not endorse neck or back pain. The patient denies nausea or vomiting. The patient denies abdominal pain. The patient denies changes to bowel movements or urination. ROS All systems reviewed and are negative except as per history of present illness. Medications Home Meds Reported Medications Atorvastatin* (Atorvastatin*) 40 Mg Tablet, 40 MG PO QHS, #30 TAB 04/29/17 Clopidogrel Bisulfate (Clopidogrel) 75 Mg Tablet, 75 MG PO DAILY, #30 TAB 04/29/17 Aspirin* (Aspirin* EC) 81 Mg Tablet.dr, 81 MG PO DAILY, TAB 04/29/17 Clonidine Hcl* (Clonidine Hcl*) 0.2 Mg Tablet, 0.2 MG PO DAILY PRN for ELEVATED BLOOD PRESSURE, TAB 04/29/17 Metformin* (Glucophage*) 500 Mg Tab, 500 MG PO BID WITH MEALS, #30 TAB 04/29/17 Meloxicam* (Mobic*) 15 Mg Tablet, 15 MG PO DAILY, #30 TAB 04/29/17 Atenolol* (Atenolol*) 50 Mg Tablet, 50 MG PO DAILY, #30 04/29/17 Losartan-Hydrochlorothiazide (Losartan-HCTZ) 100-12.5 Mg Tab, 1 TAB PO DAILY, #30 04/29/17 Allergies Allergies: Coded Allergies: No Known Allergy (Unverified , 04/29/17) PMhx/Soc Hx Cardiac Disorders: Yes (htn) Hx Alcohol Use: No Hx Substance Use: No Hx Tobacco Use: No Smoking Status: Never smoker FmHx Family History: No diabetes Physical Exam Vitals Vital Signs Date Temp Pulse Resp B/P (MAP) Pulse Ox O2 O2 Flow FiO2 Time Delivery Rate 12/16/18 50 18 133/59 99 Room Air 04:12 (83) 12/16/18 98.3 55 16 234/102 99 02:57 (146) Physical Exam Const: No acute distress Head: Atraumatic Eyes: Normal Conjunctiva ENT: Normal External Ears, Nose and Mouth. Neck: Full range of motion. No meningismus. Resp: Clear to auscultation bilaterally Cardio: Regular rhythm, no murmurs. Bradycardia. Abd: Soft, non tender, non distended. Normal bowel sounds Skin: No petechiae or rashes Back: No midline or flank tenderness Ext: No cyanosis, or edema Neur: Awake and alert Psych: Normal Mood and Affect Result Diagram: 12/16/18 0338 12/16/18 0338 Results 24 hrs Laboratory Tests Test 12/16/18 03:38 White Blood Count 7.3 10^3/ul Red Blood Count 4.51 10^6/ul Hemoglobin 12.4 g/dl Hematocrit 39.2 % Mean Corpuscular Volume 86.9 fl Mean Corpuscular Hemoglobin 27.5 pg Mean Corpuscular Hemoglobin Concent 31.6 g/dl Red Cell Distribution Width 14.0 % Platelet Count 189 10^3/UL Mean Platelet Volume 12.0 fl Immature Granulocytes % 0.300 % Neutrophils % 41.4 % Lymphocytes % 43.5 % Monocytes % 7.7 % Eosinophils % 6.4 % Basophils % 0.7 % Nucleated Red Blood Cells % 0.0 /100WBC Immature Granulocytes # 0.020 10^3/ul Neutrophils # 3.0 10^3/ul Lymphocytes # 3.2 10^3/ul Monocytes # 0.6 10^3/ul Eosinophils # 0.5 10^3/ul Basophils # 0.1 10^3/ul Nucleated Red Blood Cells # 0.0 10^3/ul Sodium Level 143 mmol/L Potassium Level 4.3 mmol/L Chloride Level 106 mmol/L Carbon Dioxide Level 31 mmol/L Anion Gap 6 Blood Urea Nitrogen 18 mg/dl Creatinine 0.72 mg/dl Est Glomerular Filtrat Rate mL/min mL/min Glucose Level 99 mg/dl Calcium Level 9.6 mg/dl Troponin I < 0.012 ng/ml B-Type Natriuretic Peptide 203 PG/ML Current Medications Medications Dose Sig/Fay Start Time Status Last (Trade) Ordered Route PRN Stop Time Admin Dose Reason Admin Nicardipine 30 mg ONCE ONCE 12/16/18 DC 12/16/18 HCl PO 03:30 03:22 (Cardene) 12/16/18 03:31 Procedures/MDM MDM The patient's presentation warrants further investigation. Previous medical records, if available, were reviewed. LABS The patient's laboratory testing was obtained and reviewed. No emergent treatment was required unless described below. CBC: No E/o systemic infection or severe anemia or thrombocytopenia Chemistry: No E/o severe acidosis or alkalosis or renal failure or diabetic ketoacidosis PT/INR: No E/o significant coagulopathy Troponin: No E/o acute ischemia BNP: Indeterminate, likely chronic without clinical evidence of acute heart failure exacerbation EKG EKG read by me: Rate/Rhythm: Sinus bradycardia at 47 bpm Intervals: Normal QRS and QTc. Prolonged OR interval indicating a first- degree AV block. Allison: Normal Impression: No evidence of acute ischemia. Sinus bradycardia. IMAGING Imaging and Radiology interpretation reviewed. CXR FINDINGS: Unchanged mild cardiomegaly and atherosclerotic change of the aorta. No acute infiltrate, pleural effusion, or overt congestive heart failure. Top normal pulmonary vascularity. Degenerative change of the spine again seen.. IMPRESSION: No significant interval change. No definite acute disease. Cardiomegaly and mild atherosclerotic change of the aorta. Electronically viewed and signed by Miesha Goodman, Physician on 12/16/2018 04:18 TREATMENT/DISPOSITION The patient presents for hypertension and a medication refill. She is otherwise well-appearing with a reassuring exam. The patient's blood pressure was elevated at greater than 120/80 while in the emergency department. The patient was otherwise stable with no evidence of hypertensive urgency or emergency. There is no evidence of emergent endorgan damage at this time. The patient does not require admission for blood pressure control. I have discussed with the patient the risks of hypertension. I have instructed the patient to return to the ER for any new or worsening symptoms including chest pain, shortness of breath, headache, blurred vision, confusion, nausea, vomiting or LOC. I have advised the patient to follow up with the primary care physician for outpatient monitoring and treatment for hypertension in 1-3 days. The patient's chest xray does not reveal pneumonia or pneumothorax or pleural effusions or pulmonary edema. The patient does not have a widened mediastinum and does not have signs or symptoms concerning for thoracic aortic aneurysm or dissection. The patient does not have pneumomediastinum or signs concerning for esophageal tear or rupture. The patient has no clinical or radiographic signs of pericardial effusion or tamponade. The patient does not have pneumoperitoneum and I have decreased suspicion of viscus perforation as possible referred pain. The patient does not have a history of heart failure and I have low suspicion for this. The patient does not have a diagnosis of COPD and is not wheezing today. The patient is not tachypneic or hypoxic. The patient is breathing comfo rtably and without pleuritic pain. The patient is not on hormonal therapy. The patient has no history of clotting or bleeding disorders. The patient has no calf tenderness. The patient has had no hemoptysis. I have decreased suspicion for PE. The patient's troponin and EKG are reassuring. I have low suspicion for acute coronary syndrome. The patient was treated with Cardene with improvement of her blood pressure. DISCHARGE Upon reevaluation of the patient, symptoms have improved. No emergent diagnoses were identified. At this time, I feel that the patient stable for discharge. The patient was instructed to follow-up with a primary care physician in 1-3 days. The patient will be given strict precautions with which to return to the emergency department. Prescriptions: Losartan-HCTZ Disclaimer: Inadvertent spelling and grammatical errors are likely due to EHR/dictation software use and do not reflect on the overall quality of patient care. Note that the electronic time recorded on this note does not necessarily reflect the actual time of the patient encounter. Departure Diagnosis: Primary Impression: Hypertension Hypertension type: essential hypertension Qualified Codes: I10 - Essential (primary) hypertension Additional Impressions: Medication refill Elevated brain natriuretic peptide (BNP) level Condition: Stable Patient Instructions: High Blood Pressure (Hypertension), Taking Medicine Safely Additional Instructions: Thank you for for coming to [facility] for your care today. Please ask your nurse or provider if you have questions about your care today and do not leave until all your questions have been answered. Please use any medications given as directed and follow-up with your doctor (or the doctor you were referred to) in the next 1-3 days. If you do not have a primary care doctor you may follow up at the [facility] or critical access hospital clinic (listed below). You may also use motrin and tylenol as needed for fever and/or pain unless instr ucted otherwise by your provider or nurse. Indications for more urgent follow-up have been discussed, but you may return to the Emergency Department at ANY time for any worrisome or worsening symptoms. If you have abdominal pain, please know that no test or exam you received is perfect and you should follow up within 8 hours for continued pain. If you had any imaging studies today, such as an X-Ray or CT Scan, these studies will be reviewed later by a radiologist. You will be called if there are important findings that were not identified today, so make sure the contact information you provided at registration is correct. If you received any narcotic pain control medicine today, such as Vicodin, Morphine or Dilaudid, your coordination and judgment may be affected for a number of hours. Please do not drive or operate heavy machinery, and you may want someone to assist you at home. If you were given a prescription for narcotic medication, be aware that it is very addictive- use sparingly and only if necessary. PLEASE SEEK FURTHER EVALUATION AND MANAGEMENT AT YOUR DOCTORS OFFICE WITHIN THE NEXT 1-3 DAYS. IT IS YOUR RESPONSIBILITY TO MAKE AN APPOINTMENT FOR FOLOW-UP CARE. IF YOU HAVE A PRIMARY DOCTOR, PLEASE CALL THEIR OFFICE TO SCHEDULE AN APPOINTMENT FOR FOLLOW UP. IF YOU DO NOT HAVE A PRIMARY DOCTOR YOU CAN CALL OUR PHYSICIAN REFERRAL HOTLINE AT IF YOU CAN NOT AFFORD TO SEE A PHYSICIAN YOU CAN CHOSE FROM THE FOLLOWING [facility] CLINICS: [facility] [address] [facility] [address] [facility]. [facility] [address] [facility] [address] [facility] [address] [facility]. [facility]. [address] VERONICA OLIVO MD December 16, 2018 03:14
[2018-12-16] MEDS ORDERED: NICARDipine HCL 30 MG CAPSULE PO ONE (03:30)
[2018-12-16] MEDS ORDERED: LOSA1TAB28 PO (04:59)
[2018-12-16 05:15] VITALS: BP 143/68; PULSE 51; RESP 18
== END 2018-12-16 05:20 | disposition home or self-care (01) ==
LOC: E/R 02:53
DX: I10 Essential (primary) hypertension (principal); R79.89 Other specified abnormal findings of blood chemistry; Z76.0 Encounter for issue of repeat prescription; Z79.82 Long term (current) use of aspirin; Z79.84 Long term (current) use of oral hypoglycemic drugs
CPT/HCPCS: 36415; 71045; 80048; 83880; 84484; 85025; Z7502; Z7610; 93005